=== PATIENT | female | born 1975 | race Caucasian/White ===

== ENCOUNTER 2020-10-25 10:05 | Inpatient (IN) | payer OTHER ==
[~2020-10-25] VITALS: Ht 162.6 cm; Wt 56.7 kg
[2020-10-25 10:12] VITALS: BP 105/60
[2020-10-25] MEDS ORDERED: PROPRANOLOL 4040 M1 PO (10:14)
[2020-10-25] MEDS ORDERED: ASPIRIN325 PO (10:15)
[2020-10-25] MEDS ORDERED: HYDROCODON-ACE1 EAC7 PO (10:15)
[2020-10-25 10:36] LABS: ABSOLUTE BASOPHILS 0.1 thou/uL (0.0-0.2); ABSOLUTE LYMPHOCYTES 1.7 thou/uL (0.8-5.3); ABSOLUTE MONOCYTES 1.3 thou/uL (0.0-1.2); ABSOLUTE NEUTROPHILS 12.7 thou/uL (1.6-8.1); BASOPHILS 0.8 %; HEMATOCRIT 45.5 % (37.0-47.0); HEMOGLOBIN 15.9 gm/dL (12.0-15.0); LYMPHOCYTES 10.6 %; MCH 32.6 pg (26.0-34.0); MCHC 34.9 g/dL (28.0-37.0); MCV 93.2 fL (80.0-100.0); MONOCYTES 8.5 %; MPV 9.1 fl. (7.2-11.1); NUCLEATED RBCS 0 /100WBC; PLATELET COUNT* 202 thou/uL (150-400); POLYS 80.1 %; RBC 4.88 mil/uL (4.20-5.00); RDW-CV 12.7 % (10.5-14.5); WBC 15.8 thou/uL (4.0-11.0)
[2020-10-25 10:43] LABS: CALCIUM 9.2 mg/dL (8.5-10.1); CREATININE 0.9 mg/dL (0.6-1.3); POTASSIUM 3.9 mmol/L (3.5-5.1)
[2020-10-25 10:56] LABS: ALBUMIN 3.7 g/dL (3.4-5.0); MAGNESIUM 1.8 mg/dL (1.8-2.4); TOTAL BILIRUBIN 0.7 mg/dL (<0.1-1.0); TOTAL PROTEIN 8.6 g/dL (6.4-8.2)
[2020-10-25 10:58] LABS: PROTIME 10.5 Seconds (9.20-11.50)
[2020-10-25 16:35] VITALS: BP 125/68
--- NOTE | 2020-10-25 16:35 | 2DMMODE ---
[place] [address] 2 D/M-MODE ECHOCARDIOGRAM Name: MAO MARX Room: [address] [facility].#: [id number] Admission: 10/25/20 Attend Phys: Bhavin Gupta Discharge: Date of : 71 Date of Service: 10/25/20 1635 Report #: [id number] THIS REPORT FOR: cc: FAM - No family physician/PCP FAM - No family physician/PCP Truman Douglas MD [facility] ~ APPROVED REPORT Study performed: 10/25/2020 14:16:20 EXAM: Comprehensive 2D, Doppler, and color-flow Echocardiogram Patient Location: In-Patient Room #: er Status: routine BSA: 1.60 HR: 86 bpm BP: 112/61 mmHg Rhythm: NSR Other Information Study Quality: Good Indications Rule out effusion 2D Dimensions IVSd: 11.12 (7-11mm) LVOT Diam: 19.13 (18-24mm) LVDd: 45.05 mm PWd: 10.07 (7-11mm) LVDs: 31.76 (25-40mm) Aortic Root: 27.45 mm Volumes Left Atrial Volume (Systole) LA ESV Index: 11.20 mL/m2 Aortic Valve AoV Peak Pedro.: 0.98 m/s AO Peak Gr.: 3.86 mmHg LVOT Max P.98 mmHg AO Mean Gr.: 2.36 mmHg LVOT Mean P.11 mmHg LVOT Max V: 0.70 m/s AO V2 VTI: 16.91 cm LVOT Mean V: 0.49 m/s JAYLIN (VTI): 2.29 cm2 LVOT V1 VTI: 13.50 [place] [address] 2 D/M-MODE ECHOCARDIOGRAM Name: MAO MARX Room: [address] IN [facility]#: [id number] Admission: 10/25/20 Attend Phys: Bhavin Gupta Discharge: Date of : 71 Date of Service: 10/25/20 1635 Report #: [id number] Mitral Valve E/A Ratio: 1.01 MV Decel. Time: 263.66 ms MV E Max Pedro.: 0.46 m/s MV PHT: 76.46 ms MVA (PHT): 2.88 cm2 TDI E/Lateral E': 7.67 E/Medial E': 5.75 Medial E' Pedro.: 0.08 m/s Lateral E' Pedro.: 0.06 m/s Pulmonary Valve PV Peak Pedro.: 0.82 m/s PV Peak Gr.: 2.68 mmHg Tricuspid Valve RAP Estimate: 5.00 mmHg TR Peak Gr.: 16.86 mmHg RVSP: 21.00 mmHg PA Pressure: 21.00 mmHg Left Ventricle The left ventricle is normal size. There is akinesis of the inferior wall. Mild concentric left ventricular hypertrophy. Left ventricular systolic function is mildly decreased. LVEF is 40-45%. Transmitral Doppler flow pattern suggests impaired LV relaxation. Right Ventricle The right ventricle is normal size. The right ventricular systolic function is normal. Atria The left atrium size is normal. The right atrium size is normal. Aortic Valve The aortic valve is normal in structure. No aortic regurgitation is present. There is no aortic valvular stenosis. Mitral Valve The mitral valve is normal in structure. There is no mitral valve regurgitation noted. No evidence of mitral valve stenosis. Tricuspid Valve The tricuspid valve is normal in structure. Trace tricuspid regurgitation. [place] [address] 2 D/M-MODE ECHOCARDIOGRAM Name: ALANNAMEKA KUCAROLMAO Ortiz Room: [address] IN [facility]#: [id number] Admission: 10/25/20 Attend Phys: Bhavin Gupta Discharge: Date of : 71 Date of Service: 10/25/20 1635 Report #: [id number] Pulmonic Valve The pulmonary valve is normal in structure. There is no pulmonic valvular regurgitation. Great Vessels The aortic root is normal in size. IVC is normal in size and collapses >50% with inspiration. Pericardium There is no pericardial effusion. <Conclusion> The left ventricle is normal size. Mild concentric left ventricular hypertrophy. Left ventricular systolic function is mildly decreased. LVEF is 40-45%. Transmitral Doppler flow pattern suggests impaired LV relaxation. There is akinesis of the inferior wall. Trace tricuspid regurgitation. No pulmonary hypertension. IVC is normal in size and collapses >50% with inspiration. <ELECTRONICALLY SIGNED> By: Truman Douglas MD, FACC 10/25/20 1635 1635 1635 Truman Douglas MD, FACC /INF
--- NOTE | 2020-10-25 16:39 | EKG ---
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 : 1975 Requested By: Kian Rodas Order Number: [id number] MD: Truman Douglas Measurements Intervals [place] Rate: 98 P: 75 CO: 128 QRS: -47 QRSD: 77 T: -84 QT: 398 QTc: 509 Interpretive Statements Sinus rhythm Probable left atrial enlargement Left anterior fascicular block Abnormal T, consider ischemia, diffuse leads ST elevation, consider lateral injury Prolonged QT interval No previous ECG available for comparison Electronically Signed On 10-25-2020 16:39:38 CDT by Truman Douglas [email or web address] <ELECTRONICALLY SIGNED> By: Truman Douglas MD, [facility] 10/25/20 1639 1010 1010 Truman Douglas MD, [facility] /EPI
--- NOTE | 2020-10-25 16:42 | EKG ---
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 : 1975 Requested By: Kian Rodas Order Number: [id number] MD: Truman Douglas Measurements Intervals [place] Rate: 87 P: 63 AL: 136 QRS: -40 QRSD: 69 T: 269 QT: 399 QTc: 480 Interpretive Statements Sinus rhythm Possible left atrial enlargement Abnormal R-wave progression, early transition Inferior infarct, age indeterminate Lateral leads are also involved Compared to ECG 10/25/2020 10:10:29 Left anterior fascicular block no longer present T-wave abnormality no longer present Possible ischemia no longer present ST (T wave) deviation no longer present Prolonged QT interval no longer present Myocardial infarct finding still present Electronically Signed On 10-25-2020 16:42:19 CDT by Truman Douglas [email or web address] <ELECTRONICALLY SIGNED> By: Truman Douglas MD, FACC 10/25/20 1642 1453 1453 Truman Douglas MD, [facility] /EPI
[2020-10-25 19:45] VITALS: BP 113/60
[2020-10-26] VITALS (7 sets, daily range): BP systolic 78–109; BP diastolic 37–55
[2020-10-26 06:15] LABS: HEMATOCRIT 38.3 % (37.0-47.0); MCH 32.5 pg (26.0-34.0); MCHC 34.9 g/dL (28.0-37.0); MCV 92.9 fL (80.0-100.0); MPV 9.3 fl. (7.2-11.1); RBC 4.12 mil/uL (4.20-5.00); RDW-CV 12.7 % (10.5-14.5); WBC 11.5 thou/uL (4.0-11.0)
[2020-10-26 06:22] LABS: HEMOGLOBIN 13.4 gm/dL (12.0-15.0)
[2020-10-26 06:25] LABS: CALCIUM 8.7 mg/dL (8.5-10.1); CREATININE 0.7 mg/dL (0.6-1.3); POTASSIUM 3.5 mmol/L (3.5-5.1)
[2020-10-26 06:30] LABS: CHOLESTEROL 171 mg/dL (<200); HDL CHOLESTEROL 44 mg/dL (>40); LDL CHOLESTEROL 96 mg/dL (<100); TC:HDL 3.9 Ratio (Not establshd); TRIGLYCERIDE 159 mg/dL (<150); VLDL 32 mg/dL (<40)
[2020-10-26 06:31] LABS: SERUM ASSESSMENT Clear
[2020-10-26 06:33] LABS: TROPONIN-I LEVEL 23.63 ng/mL (<0.06)
--- NOTE | 2020-10-26 09:27 | EKG ---
[place] [address] ELECTROCARDIOGRAM REPORT Name: MAO MARX Room: [address] ADM IN ..#: [id number] Admission: 10/25/20 Attend Phys: Bhavin Gupta Discharge: Date of : 71 Date of Service: 10/26/20 0859 Report #: [id number] THIS REPORT FOR: //name// [facility] Test Date: 2020-10-26 Test Time: 08:59:46 Pat Name: MAO FRANCA WEBSTERepartment: Room: 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1975 Requested By: Al Gong Order Number: [id number] MD: Al Gong Measurements Intervals [place] Rate: 74 P: 68 PA: 116 QRS: -40 QRSD: 81 T: -54 QT: 398 QTc: 442 Interpretive Statements Sinus rhythm Borderline short PA interval Inferior infarct, age indeterminate Lateral leads are also involved Compared to ECG 10/25/2020 14:53:55 No significant changes Electronically Signed On 10-26-2020 9:27:41 CDT by Al Gong [email or web address] <ELECTRONICALLY SIGNED> By: Al Gong MD, [facility] 10/26/2027 Al Gong MD, [facility] /EPI
[2020-10-27 04:07] VITALS: BP 88/42
[2020-10-27 04:54] LABS: HEMATOCRIT 37.3 % (37.0-47.0); HEMOGLOBIN 12.9 gm/dL (12.0-15.0); MCH 32.5 pg (26.0-34.0); MCHC 34.5 g/dL (28.0-37.0); MCV 94.4 fL (80.0-100.0); MPV 9.3 fl. (7.2-11.1); RBC 3.95 mil/uL (4.20-5.00); RDW-CV 12.6 % (10.5-14.5); WBC 7.8 thou/uL (4.0-11.0)
[2020-10-27 05:03] LABS: CALCIUM 9.1 mg/dL (8.5-10.1); CREATININE 0.8 mg/dL (0.6-1.3); POTASSIUM 3.6 mmol/L (3.5-5.1)
[2020-10-27 08:00] VITALS: BP 89/45
[2020-10-27] MEDS ORDERED: LIPITOR40 MG PO (08:43)
[2020-10-27] MEDS ORDERED: PLAVIX 75 MG TA75 MG PO (08:43)
[2020-10-27 11:20] VITALS: BP 89/45
[2020-10-27 12:01] VITALS: BP 90/43
[2020-10-27 12:04] VITALS: BP 97/53
[2020-10-27] MEDS ORDERED: BAYER CHEWABLE81 MG PO (12:21)
[2020-10-27] MEDS ORDERED: PROPRANOLOL 4040 M1 PO (12:21)
[2020-10-27 13:20] VITALS: BP 97/53
--- NOTE | 2020-10-28 12:33 | CON ---
[address] [address] CONSULTATION Name: MAO MARX Room: [address] IN [facility].#: [id number] Admission: 10/25/20 Attend Phys: Joe Nino Discharge: 10/27/20 Date of : 71 Report #: [id number] THIS REPORT FOR: cc: FAM - No family physician/PCP FAM - No family physician/PCP Truman Douglas MD [facility] ~ DOC #: [id number] Truman Douglas MD DATE OF CONSULTATION: 10/25/2020 CARDIOLOGY CONSULT INDICATION: Chest pain with elevated troponin consistent with non-ST elevation myocardial infarction. HISTORY OF PRESENT ILLNESS: The patient is a 45-year-old white female who reports a history of fibromuscular dysplasia. She reports having multiple angiograms in the past, but does not recall ever having a coronary angiogram. She reports having angioplasty on some occasions, but denies any prior stenting. She apparently has right renal artery stenosis with stable renal function at this point in time. She reports a history of stroke in 2009 with carotid angiogram. She developed midsternal chest discomfort with radiation to the left shoulder and left neck at 2:00 a.m. on 10/24/2020. The pain has been persistent since then. The pain is a squeezing sensation around her chest, which she describes as being worse with deep breath and worse with lying back. She also has rather significant reproducible pain on the anterior chest wall with mild palpation. She is not having diaphoresis or nausea. The pain has been persistent. Her troponin on arrival was 20 and followup troponin was still 20. EKG shows sinus rhythm with some biphasic T waves in the anterolateral leads. I do not appreciate levi ST elevation. PAST MEDICAL HISTORY: Significant for; 1. Fibromuscular dysplasia. 2. Stroke in 2009. 3. Right renal artery stenosis. 4. Bilateral femoral stenosis. 5. Lupus at the age of 21. 6. Oophorectomy 2011. 7. Peripheral vascular disease with fibromuscular dysplasia. 8. Stella's thyroiditis. 9. Hypertension. FAMILY HISTORY: Father had a myocardial infarction [place] [address] [address] CONSULTATION Name: MAO MARX Room: [address]#: [id number] Admission: 10/25/20 Attend Phys: Joe Nino Discharge: 10/27/20 Date of : 71 Report #: [id number] SOCIAL HISTORY: The patient is . She smokes a pack of cigarettes daily. She does not drink alcohol. ALLERGIES: TRAMADOL. SHE REPORTS ALLERGY TO AMITRIPTYLINE. SHE SAYS SHE IS "NONTHERAPEUTIC" TO COUMADIN. REVIEW OF SYSTEMS: Fourteen-point review of systems positive for generalized weakness, unexplained fever for a day and a half, chest discomfort, dyspnea and palpitations. History of thyroiditis, history of anemia, history of blood clotting with strokes in 2010, medical allergies as outlined above, seasonal allergies, history of depression and anxiety. She wears glasses without acute visual loss. She wears dentures. Otherwise, 14-point review of systems was unremarkable. PHYSICAL EXAMINATION: VITAL SIGNS: Blood pressure 106/69, pulse 94 and regular. GENERAL: This is a pleasant lady who does not appear to be in acute distress. HEENT: Normocephalic, atraumatic. Extraocular muscles intact. The patient is wearing glasses. Mucous membranes are moist. NECK: Examination of the neck shows no jugular venous distention. I do not appreciate bruit. ABDOMEN: Reveals normal bowel sounds. Abdomen is soft, nontender. CARDIAC: Reveals a regular rhythm, no gallop or murmur. EXTREMITIES: Shows no edema. Peripheral pulses 2+ and palpable. SKIN: Dry. LABORATORY DATA: Reviewed. Electrolytes within normal limits. BUN 8, creatinine 0.9, serum glucose 120. Troponin 20.18 and 20.65. NT-proBNP 7313, white blood cell count 15.8, hemoglobin 15.9, platelet count 202,000. Chest x-ray shows no acute process with normal cardiac silhouette. IMPRESSION AND RECOMMENDATIONS: 1. Chest discomfort that is not entirely typical for myocardial infarction; however, this is in the setting of an elevated troponin with abnormal EKG suggestive of non-ST elevation myocardial infarction. Proceed to catheterization lab for angiography. An echocardiogram obtained earlier shows inferior wall hypokinesis. No pericardial effusion was appreciated. 2. Tobacco use. Smoking cessation advised. 3. Fibromuscular dysplasia. The patient follows with [facility] for this. 4. Hypertension. Blood pressure adequately controlled at this time. 5. Family history of premature atherosclerotic coronary artery disease, as outlined above. [address] [address] CONSULTATION Name: MAO MARX Room: M.206-P DIS IN M.R.#: [id number] Admission: 10/25/20 Attend Phys: Joe Nino Discharge: 10/27/20 Date of : 71 Report #: [id number] MD ANTWON MathewL/MARK <ELECTRONICALLY SIGNED> By: Truman Douglas MD, [facility] 10/28/20 1233 1446 1632[facility] Amaya Douglas MD, VENKATES[facility] /nt
== END 2020-10-27 14:04 | disposition home or self-care (01) | DRG 246 ==
LOC: M.ERS 10:05 → M.TBA-ER 13:47 → M.2W 19:00
PROVIDERS: Emergency Medicine; Family Medicine; Internal Medicine Cardiovascular Disease; ADMIT Internal Medicine; ATTEND Internal Medicine
PROC: B2111ZZ Fluoroscopy of Multiple Coronary Arteries using Low Osmolar Contrast (ICD-10-PCS; principal; 2020-10-25)
PROC: 027135Z Dilation of Coronary Artery, Two Arteries with Two Drug-eluting Intraluminal Devices, Percutaneous Approach (ICD-10-PCS; principal; 2020-10-25)
PROC: 4A023N7 Measurement of Cardiac Sampling and Pressure, Left Heart, Percutaneous Approach (ICD-10-PCS; principal; 2020-10-25)
DX: I21.4 Non-ST elevation (NSTEMI) myocardial infarction (principal); I50.33 Acute on chronic diastolic (congestive) heart failure; J96.00 Acute respiratory failure, unspecified whether with hypoxia or hypercapnia; I73.9 Peripheral vascular disease, unspecified; I11.0 Hypertensive heart disease with heart failure; Z86.73 Personal history of transient ischemic attack (TIA), and cerebral infarction without residual deficits; I25.10 Atherosclerotic heart disease of native coronary artery without angina pectoris; Z20.822 Contact with and (suspected) exposure to COVID-19; Z90.710 Acquired absence of both cervix and uterus; Z90.721 Acquired absence of ovaries, unilateral; Z88.8 Allergy status to other drugs, medicaments and biological substances; Z71.6 Tobacco abuse counseling; Q78.1 Polyostotic fibrous dysplasia; Z82.49 Family history of ischemic heart disease and other diseases of the circulatory system